=== PATIENT | female | born 1995 | race Caucasian/White ===

== ENCOUNTER 2022-05-07 23:02 | Emergency (ER) | payer OTHER, SELFPAY ==
[2022-05-07 23:11] VITALS: BP 143/86; RESP 20; TEMP 37.3; O2SAT 99; BMI 29.2
--- NOTE | 2022-05-08 00:14 | ED_ITS ---
HPI - General Adult General Chief complaint: Eye Problems Stated complaint: Blurred/impaired vision. Nausous Time Seen by Provider: 05/07/22 23:55 Source: patient Mode of arrival: ambulatory Limitations: no limitations History of Present Illness HPI narrative: 26-year-old female presents to the emergency department with vision loss for 4 days, intermittent. No trauma and no injury. Does wear contacts on a normal basis, comes with her glasses on today. No purulent drainage but eyes have been a bit watery. Claims that she cannot even read the visual acuity chart. Vision loss is equal bilaterally. She is mildly nauseated and the eyes themselves feel tender but there is no headache, periorbital pain, posterior eye pain. Denies any history of similar symptoms. No known sick contacts. Has taken out her contacts but otherwise has not tried any other treatments to help with her symptoms. Vision was normal upon awakening this morning but eyes were quite watery. Vision seems to have worsened through the day. She tells the nurse that she cannot even see the eye chart. She states that her past medical history is benign with no major long-term health problems. She takes no long-term medications, has no allergies. Denies history of eye surgeries. ROS is notable for the HEENT, generalized symptoms as above with some mild nausea. Otherwise denies any neurological change or skin issues. Related Data Home Medications Medication Instructions Recorded Confirmed No Known Home Medications 05/07/22 05/07/22 Allergies Allergy/AdvReac Type Severity Reaction Status Date / Time No Known Drug Allergies Allergy Verified 05/07/22 23:21 [facility] Social History Smoking Status: Never smoker Do you use any of these nicotine containing products: None Second hand tobacco smoke exposure: No How often do you have a drink containing alcohol: monthly or less How many standard drinks containing alcohol do you have on a typical day: 1 or 2 AUDIT-C Alcohol total score: 1 Non-prescribed substance use: denies use Exam Narrative: Exam Narrative: This is a very paradoxical exam. She follows my finger quickly and easily to observe extraocular movements, she is able to ambulate, navigating obstacles very quickly and easily throughout the exam room and out into the hallway for visual acuity exam. Once there, she claims she cannot see any of the letters on the chart. However from a distance of 5 ft she can do finger exams rapidly and easily. I catch her looking at my name badge which is small print and focusing on this, appearing as though she is able to read my name. I cannot understand the discrepancy in the exam. Const: Vital Signs, click to edit/add: Vital Signs - 24 hr 05/07/22 23:11 Temperature 99.1 F Respiratory Rate 20 Blood Pressure [Le ft Upper Arm] 143/86 H Blood Pressure [Ri ght Upper Arm] 143/86 H Pulse Oximetry 99 Oxygen Delivery Me thod Room Air Documenting provider has reviewed patient's vital signs: yes Common normals: no apparent distress General appearance: comfortable HENMT: Common normals: normocephalic, head/scalp atraumatic and external nose normal Head and scalp: normocephalic and atraumatic Nose: external nose normal Mouth: oral and palatal mucosa normal Teeth and gingiva: abnormal tooth and associated gingiva Eye: Common normals: PERRL, EOMs intact bilaterally, no scleral icterus, no papilledema and normal visual orozco by confrontation Pupil: PERRL Direct Ophthalmoscopy: no papilledema Other: Conjunctiva are red and swollen with watery drainage, sclera are injected. The injection does overlap the conjunctival area more so than the center of the eye. There is no evidence of obvious foreign body. It is equal and symmetric. Extraocular movements are quickly examined and she does very well with this she also has no difficulty with double or single eye on telling me how many fingers I am holding up from a distance of about 6 ft. Neck & C-Spine: Common normals: full ROM and no lymphadenopathy Resp: Common normals: normal respiratory effort Effort & inspection: able to speak in complete sentences Neuro: Cranial nerves: CN normal except as noted Speech: speech normal Gait (neuro): normal gait Motor exam: no movement abnormalities noted Psych: Other: Mildly anxious with normal seeming insight and judgment Skin: Common normals: no rashes or lesions noted General skin exam: no rashes or lesions noted Course Vital Signs Vital signs: Initial Vital Signs Temperature 99.1 F 05/07/22 23:11 Temperature Source Temporal Artery Scan 05/07/22 23:11 Respiratory Rate 20 05/07/22 23:11 Blood Pressure 143/86 H 05/07/22 23:11 Blood Pressure Mean 105 05/07/22 23:11 Blood Pressure Position Sitting 05/07/22 23:11 Pulse Oximetry 99 05/07/22 23:11 Oxygen Delivery Method 05/07/22 23:11 Vital Signs Temperature 99.1 F 05/07/22 23:11 Respiratory Rate 20 05/07/22 23:11 Blood Pressure 143/86 H 05/07/22 23:11 Pulse Oximetry 99 05/07/22 23:11 Oxygen Delivery Method 05/07/22 23:11 Temperature 99.1 F 05/07/22 23:11 Respiratory Rate 20 05/07/22 23:11 Blood Pressure 143/86 H 05/07/22 23:11 Pulse Oximetry 99 05/07/22 23:11 Oxygen Delivery Method 05/07/22 23:11 Medical Decision Making MDM Narrative Medical decision making narrative: Counseled patient that I can only perform a very limited exam here in the emergency department. We do not have an eye doctor on staff. Exam sees consistent with keratitis but cannot exclude more significant pathology. Since her symptoms are equal, bilateral, and she does have injected redness, I am inclined to think that this is more of a keratitis and should heal without complication. Antibiotic drops will be prescribed. This was all explained to her and written instructions were provided. Her exam is reassuring by provider but I can not completely account for her inability to read the visual acuity chart. She will need to be out of her contacts for the next week and start eyedrops, see prescription. Alarm symptoms reviewed. Discharge Plan Discharge Clinical Impression: Keratitis Patient Disposition: Home w/ Parent or Adult Condition: Stable Instructions: Keratitis (ED) Additional Instructions: As we discussed, your exam seems consistent with a simple keratitis, common in people who were contacts. It will cause some irritation, some mild clouding of the vision but not complete visual loss. Your inability to read the eye chart is concerning, but your ability to follow my finger for evaluation of eye movements an your ability to quickly and easily tell how many fingers I am holding up, etc is reassuring. As we discussed, we do not have an eye doctor on staff this time of night. We discussed to scenarios, 1 was referral to a trauma center. This ensures that you get evaluation of the eye tonight. You felt as though this was not likely necessary and I am inclined to agree. I would like for you to start the eyedrops prescribed instead and follow-up for an exam at an eye center in the morning. You will need to call for an appointment. I do recommend [facility] here in [place]. There are similar offices in [place] and [place] that are available as well. The number for [facility] is [phone]. No contacts for the next week while the eyes heal. Once they are improved, you can reinsert a new, clean pair of contacts. Activity Level: Activity as Tolerated Discharge Diet: Regular Prescriptions: No Action No Known Home Medications Stand Alone Forms: MyHealth Info Instructions Discharge Comment: Pt given [facility] prescription for eye drops.
== END 2022-05-08 00:44 | disposition home or self-care (01) ==
PROVIDERS: Emergency Provider Family Medicine
DX: H16.9 Unspecified keratitis (principal)
CPT/HCPCS: 99282; 99283; 99284